=== PATIENT | female | born 1980 | race Caucasian/White ===

== ENCOUNTER → 2024-03-20 16:09 | Outpatient (REF) | payer OTHER, SELFPAY | LOC: WDC 16:09 | PROVIDERS: ATTENDING PHYSICIAN Family Medicine; FAMILY PHYSICIAN Nurse Practitioner Adult Health | DX: Z12.31 Encounter for screening mammogram for malignant neoplasm of breast (principal) | CPT/HCPCS: 77063; 77067 ==

== ENCOUNTER 2024-12-09 17:05 | Outpatient (RCR) | payer OTHER, SELFPAY | END 2024-12-09 23:59 | disposition home or self-care (01) | LOC: RPT 17:05 | PROVIDERS: ATTENDING PHYSICIAN Family Medicine | DX: M54.12 Radiculopathy, cervical region (principal); Z73.6 Limitation of activities due to disability | CPT/HCPCS: 97110; 97140; 97162 ==

== ENCOUNTER 2024-12-30 16:04 | Outpatient (RCR) | payer OTHER, SELFPAY | END 2024-12-30 23:59 | disposition home or self-care (01) | LOC: RPT 16:04 | PROVIDERS: ATTENDING PHYSICIAN Family Medicine | DX: M54.12 Radiculopathy, cervical region (principal); Z73.6 Limitation of activities due to disability | CPT/HCPCS: 97110; 97140 ==

== ENCOUNTER → 2025-03-24 16:10 | Outpatient (REF) | payer OTHER, SELFPAY | LOC: WDC 16:10 | PROVIDERS: ATTENDING PHYSICIAN Obstetrics & Gynecology Gynecology; FAMILY PHYSICIAN Family Medicine | DX: Z12.31 Encounter for screening mammogram for malignant neoplasm of breast (principal) | CPT/HCPCS: 77063; 77067 ==